=== PATIENT | male | born 1975 | race Two or more races ===

== ENCOUNTER 2019-01-02 03:34 | Emergency (ER) | payer OTHER ==
[~2019-01-02] VITALS: Ht 170.2 cm; Wt 67.1 kg
[2019-01-02] MEDS ORDERED: LIPITOR40 MG (03:50)
== END 2019-01-02 13:19 | disposition home or self-care (01) ==
LOC: ER 03:34
DX: N20.1 Calculus of ureter (principal); N20.0 Calculus of kidney